=== PATIENT | male | born 1955 | race Caucasian/White ===

== ENCOUNTER 2016-09-09 17:08 | Emergency (ER) | payer BC ==
--- NOTE | 2016-09-09 19:01 | EDM.PDOC ---
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 He is on fire watch to make sure that he contacts authorities promptly if flare occurs. He drove himself all the way from [place] today and is working about 30 miles away, had no difficulties driving here although he notices when he looks with his right eye in the middle to long-distance he will see double or triple but he has no trouble seeing with both eyes together. Some nausea but no vomiting. Appetite normal, his balance is off, has to stand still for a moment when he stands up but sometimes even feels off balance even sitting in the chair. He's been treated for anxiety sertraline, hypertension, hyperlipidemia, gastroesophageal reflux with omeprazole, gabapentin for chronic neck and back pain. He is on carbidopa/levodopa for tremor, possible Parkinson's disease, has been seen by a neurologist in [place]. He is on 2 medications for cluster headaches divalproex and verapamil, previously used to have a very severe headaches, hasn't had any for 2 years. Developed a bruise on the medial aspect of his right thigh last week and was seen in urgent care. He was told he must himself but he denies any injury. There is a hard spot near the center of the bruise. He was told it was not a blood clot. It was sore for a couple days but is not bothering him now. No change in the doses of his medications over the last month - Related Data Allergies Allergy/AdvReac Type Severity Reaction Status Date / Time No Known Allergies Allergy Verified 09/09/16 17:36 Home Meds: Home Meds Albuterol/Ipratropium [Combivent Respimat] 4 gm IH ASDIRECTED PRN 09/09/16 [ History] Carbidopa/Levodopa [Carbidopa-Levo ER 25-100] 1 tab PO TID 09/09/16 [History] Divalproex Sodium [Divalproex Sodium ER] 250 mg PO BID 09/09/16 [History] Finasteride [Proscar] 5 mg PO DAILY 09/09/16 [History] Fluticasone/Salmeterol [Advair Diskus 100-50] 1 puff INH BID 09/09/16 [History] Gabapentin [Neurontin] 300 mg PO BID 09/09/16 [History] Hydrochlorothiazide/Lisinopril [Lisinopril-HCTZ 20-25 MG] 1 tab PO DAILY [History] Minocycline [Minocin] 100 mg PO DAILY 09/09/16 [History] Omeprazole 20 mg PO BIDAC 09/09/16 [History] Potassium Chloride 20 meq PO DAILY #7 tablet.er 09/09/16 [Rx] Sertraline [Zoloft] 50 mg PO DAILY 09/09/16 [History] Simvastatin [Zocor] 20 mg PO DAILY 09/09/16 [History] Tamsulosin [Tamsulosin 24 Hr] 0.4 mg PO DAILY 09/09/16 [History] Verapamil [Calan] 80 mg PO Q8H 09/09/16 [History] oxyCODONE HCl/Acetaminophen [oxyCODONE-Acetaminophen 5-325] 1 tab PO Q6HR PRN [History] Past Medical History HEENT History: Reports: Impaired Vision Cardiovascular History: Reports: Hypertension Respiratory History: Reports: COPD Gastrointestinal History: Reports: GERD Genitourinary History: Reports: Retention, Urinary Musculoskeletal History: Reports: Back Pain, Chronic (previous fx back x 2), Neck Pain, Chronic Neurological History: Reports: Other (See Below) Other Neuro History: pt. is taking medicine for tremors , possible Parkinson's Psychiatric History: Reports: Depression - Infectious Disease History Infectious Disease History: Reports: Chicken Pox, Measles, Mumps Social & Family History - Tobacco Use Smoking Status *Q: Current Every Day Smoker Years of Tobacco use: 43 Packs/Tins Daily: 1 - Caffeine Use Caffeine Use: Reports: Coffee - Recreational Drug Use Recreational Drug Use: No ED ROS GENERAL - Review of Systems Review Of Systems: See Below Constitutional: Reports: Malaise. Denies: Fever, Chills, Decreased Appetite, Weight Loss HEENT: Reports: Hearing Loss (Brief episode lasting a couple minutes yesterday, without), Vertigo ( tinnitus and no spinning feeling off balance ), Vision Change (Not when he uses both eyes, only when he looks beyond 5 feet with right eye only he has double or triple vision). Denies: Ear Pain, Eye Pain, Rhinitis Respiratory: Reports: No Symptoms Cardiovascular: Reports: No Symptoms GI/Abdominal: Reports: Nausea (On arrival, better now). Denies: Abdominal Pain , Diarrhea, Vomiting : Reports: No Symptoms Musculoskeletal: Reports: Neck Pain (Chronic), Back Pain (Chronic) Skin: Reports: Bruising (New bruise on the medial aspect of right thigh last week, no history of injury,), Rash (Psoriasis) Neurological: Reports: Tremors (Ongoing), Gait Disturbance. Denies: Numbness, Syncope, Tingling, Change in Speech (Some troubles with balance) Psychiatric: Reports: Anxiety (On treatment) Hematologic/Lymphatic: Reports: No Symptoms Immunologic: Reports: No Symptoms ED EXAM, GENERAL - Physical Exam Exam: See Below Exam Limited By: No Limitations General Appearance: Alert, Anxious, Mild Distress, Other (Mild elevation of blood pressure, no difficulty speaking or breathing, appears tired) Eye Exam: Bilateral Eye: Normal Inspection (No nystagmus or inflammation) Ears: Normal External Exam, Normal Canal, Hearing Grossly Normal, Normal TMs Nose: Normal Inspection, Normal Mucosa Throat/Mouth: Normal Inspection, Normal Oropharynx, Normal Voice, Other (Some dental deterioration) Head: Atraumatic Neck: Normal Inspection, Other (Some decreased range of motion in chronic tenderness). No: Lymphadenopathy (R), Lymphadenopathy (L) Respiratory/Chest: No Respiratory Distress, Lungs Clear Cardiovascular: Normal Peripheral Pulses, Regular Rate, Rhythm, No Murmur GI/Abdominal: Normal Bowel Sounds, Soft, Non-Tender, No Distention. No: Guarding, Tender Extremities: No Pedal Edema, Normal Capillary Refill, Other (Circular bruise medial aspect right thigh with indurated center). No: Pedal Edema Neurological: Alert, Oriented, Normal Cognition, Normal Reflexes, No Motor/ Sensory Deficits, Other (Tandem gait is difficult for him, Romberg negative, normal rapid alternating movements, mild tremor of the upper extremities and had ). No: Abnormal Reflexes Psychiatric: Anxious Skin Exam: Warm, Dry, Rash (Psoriatic plaques of his lower extremities), Other ( Well tanned) Lymphatic: No Adenopathy (, bruised right eye) Course - Vital Signs Last Recorded V/S: Last Vital Signs Temp 36.8 C 09/09/16 17:26 Pulse 78 09/09/16 19:04 Resp 20 09/09/16 19:04 BP 128/91 H 09/09/16 19:04 Pulse Ox 95 09/09/16 19:04 - Orders/Labs/Meds Orders: Active Orders 24 hr Category Date Time Status EKG 12 Lead [EK] Routine Ther 09/09/16 18:49 Ordered Labs: Laboratory Tests 09/09/16 09/09/16 09/09/16 Range/Units 18:54 19:01 19:01 WBC 8.7 (4.5-11.0) K/uL RBC 5.00 (4.30-5.90) M/uL Hgb 14.4 (12.0-15.0) g/dL Hct 42.9 (40.0-54.0) % MCV 86 (80-98) fL MCH 29 (27-31) pg MCHC 34 (32-36) % Plt Count 215 (150-400) K/uL Neut % (Auto) 67 H (36-66) % Lymph % (Auto) 22 L (24-44) % Citrus % (Auto) 8 H (2-6) % Eos % (Auto) 1 L (2-4) % Baso % (Auto) 1 (0-1) % Sodium 138 L (140-148) mmol/L Potassium 3.3 L (3.6-5.2) mmol/L Chloride 99 L (100-108) mmol/L Carbon Dioxide 33 H (21-32) mmol/L Anion Gap 9.3 (5.0-14.0) mmol/L BUN 16 (7-18) mg/dL Creatinine 1.4 H (0.8-1.3) mg/dL Est Cr Clr Drug Dosing 53.61 mL/min Estimated GFR (MDRD) 52 L (>60) Glucose 90 (74-106) mg/dL Calcium 8.8 (8.5-10.1) mg/dL Total Bilirubin 0.5 (0.2-1.0) mg/dL AST 21 (15-37) U/L ALT 27 (12-78) U/L Alkaline Phosphatase 60 (46-116) U/L Troponin I < 0.017 (0.000-0.056) ng/mL Total Protein 7.9 (6.4-8.2) g/dL Albumin 3.7 (3.4-5.0) g/dL Globulin 4.2 H (2.3-3.5) g/dL Albumin/Globulin Ratio 0.9 L (1.2-2.2) Urine Color Yellow Urine Appearance Clear Urine pH 6.5 (4.5-8.0) Ur Specific [place] 1.010 (1.008-1.030) Urine Protein Negative (NEGATIVE) mg/dL Urine Glucose (UA) Normal (NEGATIVE) mg/dL Urine Ketones Negative (NEGATIVE) mg/dL Urine Occult Blood Negative (NEGATIVE) Urine Nitrite Negative (NEGAITVE) Urine Bilirubin Negative (NEGATIVE) Urine Urobilinogen Normal (NORMAL) mg/dL Ur Leukocyte Esterase Negative (NEGATIVE) Urine RBC Not seen (0-5) Urine WBC Not seen (0-5) Ur Epithelial Cells Rare Amorphous Sediment Rare Urine Bacteria Not seen Urine Mucus Not seen Meds: Medications Discontinued Medications Generic Name Dose Route Start Last Admin Trade Name Freq PRN Reason Stop Dose Admin Potassium Chloride 20 meq 09/09/16 20:03 09/09/16 20:11 Klor-Con M20 PO 09/09/16 20:04 20 meq ONETIME ONE Administration - Re-Assessments/Exams Free Text/Narrative Re-Assessment/Exam: 09/09/16 19:02 61-year-old male with symptoms of disequilibrium and non-physiologic vision changes with his right eye only Multiple possible causes include worsening of Parkinson's disease, dehydration, ischemia Unlikely to be myocardial ischemia or stroke Can be due to vestibular neuronitis. There's been no changes in his medication doses but several of his medications including anticonvulsants and his minocycline can contribute to this as well. 09/09/16 20:10 Hemoglobin and WBC normal Mild depression of sodium at 138 and potassium of 3.3 Mild elevation of creatinine This suggests either low potassium due to his diuretic or a mild dehydration or both Potassium chloride 20 mEq by mouth given here and prescribed once daily for 7 days Recommended he have a follow-up recheck. The altered electrodes could explain his off balance feeling and his vision changes, however could also be due to Parkinson's disease or his medications a follow-up with neurology is recommended if his symptoms persist Departure - Departure Time of Disposition: 20:02 Disposition: Home, Self-Care 01 Condition: Good Clinical Impression: Hypokalemia, Subjective visual disturbance, right eye - Discharge Information Prescriptions: Potassium Chloride 20 meq PO DAILY #7 tablet.er Instructions: Hypokalemia, Visual Disturbances Referrals: PCP,None [Primary Care Provider] - Forms: ED Department Discharge Additional Instructions: you have mild decrease in your potassium at 3.3 and your sodium at 138, these could be contributing to your weakness and balance troubles or could indicate a mild degree of dehydration. Make sure you drink plenty of fluids and take Gatorade or fresh fruits or vegetables as a source of minerals when you're working outside. To help correct your potassium and recommend you take potassium chloride once daily for the next 7 days Have your physician recheck your potassium level in the next 7-10 days. In addition if your vision problems persist then I recommend that you see an vehicle care specialist within that time as well. - My Orders Last 24 Hours: My Active Orders 09/09/16 18:49 EKG 12 Lead [EK] Routine - Assessment/Plan Last 24 Hours: My Active Orders 09/09/16 18:49 EKG 12 Lead [EK] Routine
[2016-09-09 19:05] VITALS: BP 128/91
[2016-09-09] MEDS ORDERED: Potassium Chloride 20 MEQ Tab.ER PO ONE (20:03)
== END 2016-09-09 20:28 | disposition home or self-care (01) ==
LOC: JP.ED 17:08
DX: H53.10 Unspecified subjective visual disturbances (principal); E87.6 Hypokalemia; F41.9 Anxiety disorder, unspecified; I10 Essential (primary) hypertension; E78.5 Hyperlipidemia, unspecified; K21.9 Gastro-esophageal reflux disease without esophagitis; Z79.899 Other long term (current) drug therapy
CPT/HCPCS: 36415; 80053; 81001; 84484; 85025; 99285; A9270; 93005